=== PATIENT | male | born 1970 | race Caucasian/White ===

== ENCOUNTER 2022-05-15 23:21 | Emergency (ER) | payer OTHER ==
[~2022-05-15] VITALS: Ht 180.3 cm; Wt 99.4 kg
[2022-05-16] MEDS ORDERED: IOHEXOL 350 MG/ML 100ML IJ ONE (00:06)
[2022-05-16] MEDS ORDERED: SODIUM CHLORIDE 0.9% 1,000 ML IV ONE (00:15)
[2022-05-16] MEDS ORDERED: ONDANSETRON HCL 4 MG/2 ML VIAL IV ONE (00:15)
[2022-05-16] MEDS ORDERED: HYDROmorphone HCL 2 MG/ML VL/or syr IV ONE (00:15)
[2022-05-16 02:00] VITALS: BP 170/109
[2022-05-16] MEDS ORDERED: ONDA-144 PO (02:32)
[2022-05-16] MEDS ORDERED: PERCOT PO (02:32)
[2022-05-16] MEDS ORDERED: DexAMETHasone SOD PHOS 10MG/1ML VIAL INJ IV ONE (02:45)
== END 2022-05-16 03:05 | disposition home or self-care (01) ==
LOC: ER 23:21
DX: T14.8XXA Other injury of unspecified body region, initial encounter (principal); G89.11 Acute pain due to trauma; R51.9 Headache, unspecified; Z88.8 Allergy status to other drugs, medicaments and biological substances; Z88.5 Allergy status to narcotic agent; V89.2XXA Person injured in unspecified motor-vehicle accident, traffic, initial encounter; Y93.89 Activity, other specified; Y92.89 Other specified places as the place of occurrence of the external cause; Y99.8 Other external cause status
CPT/HCPCS: 70450; 71260; 72125; 74177; 96374; 99284; J1100; Q9967